=== PATIENT | female | born 1975 | race Caucasian/White ===

== ENCOUNTER 2019-05-01 17:00 | Outpatient (REF) | payer BC, MEDICAID, SELFPAY ==
[2019-05-01 20:40] LABS: Anion Gap 7.6 mmol/L (3-11); BUN 9 mg/dL (7-18); CO2 29.4 mmol/L (21.0-32.0); CREATININE 0.86 mg/dL (0.55-1.02); Calcium 8.9 mg/dL (8.5-10.1); Chloride 104 mmol/L (98-107); Glucose 80 mg/dL (74-106); Potassium 4.1 mmol/L (3.5-5.1); Sodium 141 mmol/L (136-145)
== END 2019-05-01 17:20 ==
LOC: NCHCN 17:00
PROVIDERS: PCP Nurse Practitioner Family; Visit Provider Nurse Practitioner Family
DX: I10 Essential (primary) hypertension (principal)
CPT/HCPCS: 80048

== ENCOUNTER 2019-11-28 18:07 | Outpatient (REF) | payer BC, MEDICAID, SELFPAY ==
[2019-11-28 21:26] LABS: Anion Gap 5.6 mmol/L (3-11); BUN 16 mg/dL (7-18); CO2 29.4 mmol/L (21.0-32.0); CREATININE 0.88 mg/dL (0.55-1.02); Calcium 9.3 mg/dL (8.5-10.1); Calculated LDL 94 mg/dL (<100); Chloride 102 mmol/L (98-107); Cholesterol 174 mg/dL (<200); Glucose 89 mg/dL (74-106); HDL Cholesterol 63 mg/dL (40-60); Potassium 3.9 mmol/L (3.5-5.1); Sodium 137 mmol/L (136-145); Triglyceride 87 mg/dL (<150)
== END 2019-11-28 18:27 ==
LOC: NCHCN 18:07
PROVIDERS: PCP Nurse Practitioner Family; Visit Provider Nurse Practitioner Family
DX: Z00.00 Encounter for general adult medical examination without abnormal findings (principal); Z13.220 Encounter for screening for lipoid disorders; Z13.228 Encounter for screening for other metabolic disorders; Z13.1 Encounter for screening for diabetes mellitus
CPT/HCPCS: 80048; 80061; 83036

== ENCOUNTER 2021-03-27 16:43 | Outpatient (REF) | payer MEDICAID, SELFPAY ==
[2021-03-27 21:55] LABS: Anion Gap 6.6 mmol/L (3-11); BUN 4 mg/dL (7-18); CO2 30.4 mmol/L (21.0-32.0); CREATININE 0.7 mg/dL (0.55-1.02); Calcium 8.8 mg/dL (8.5-10.1); Chloride 103 mmol/L (98-107); Glucose 96 mg/dL (74-106); Potassium 4.2 mmol/L (3.5-5.1); Sodium 140 mmol/L (136-145)
== END 2021-03-27 16:44 | disposition home or self-care (01) ==
LOC: NCHCN 16:43
PROVIDERS: PCP Nurse Practitioner Family; Visit Provider Nurse Practitioner Family
DX: I10 Essential (primary) hypertension (principal)
CPT/HCPCS: 80048

== ENCOUNTER 2022-07-23 17:21 | Outpatient (REF) | payer MEDICAID, SELFPAY ==
[2022-07-23 20:44] LABS: Anion Gap 6.3 mmol/L (3-11); BUN 11 mg/dL (7-18); CO2 30.7 mmol/L (21.0-32.0); CREATININE 0.8 mg/dL (0.55-1.02); Calcium 9.4 mg/dL (8.5-10.1); Chloride 105 mmol/L (98-107); Estimated GFR 91.97 (mL/min/1.73m2); Glucose 107 mg/dL (74-106); Potassium 3.3 mmol/L (3.5-5.1); Sodium 142 mmol/L (136-145)
== END 2022-07-23 17:22 | disposition home or self-care (01) ==
LOC: NCHCN 17:21
PROVIDERS: PCP Nurse Practitioner Family; Visit Provider Nurse Practitioner Family
DX: I10 Essential (primary) hypertension (principal)
CPT/HCPCS: 80048

== ENCOUNTER 2022-07-27 21:40 | Outpatient (REF) | payer MEDICAID, SELFPAY ==
[2022-07-27 22:07] LABS: Anion Gap 8.3 mmol/L (3-11); BUN 9 mg/dL (7-18); CO2 29.7 mmol/L (21.0-32.0); CREATININE 0.8 mg/dL (0.55-1.02); Calcium 9.5 mg/dL (8.5-10.1); Chloride 104 mmol/L (98-107); Estimated GFR 91.97 (mL/min/1.73m2); Glucose 133 mg/dL (74-106); Potassium 3.2 mmol/L (3.5-5.1); Sodium 142 mmol/L (136-145)
== END 2022-07-27 21:41 | disposition home or self-care (01) ==
LOC: NCHCN 21:40
PROVIDERS: PCP Nurse Practitioner Family; Visit Provider Nurse Practitioner Family
DX: I10 Essential (primary) hypertension (principal)
CPT/HCPCS: 80048

== ENCOUNTER 2023-04-05 16:12 | Outpatient (REF) | payer MEDICAID, SELFPAY ==
--- OUTSIDE RECORDS SUMMARY | 2023-04-05 16:14 | XMS_ITS | CCD ---
Author Name Unknown Address [address] [place] [address] [phone] Organization Unknown Address [address] [place] [address] [phone] Care Team Providers Care Senior Analyst Developer Name Role Phone THEODORA ARRIAGA Attending Physician [phone] Vital Signs Unknown or Not Available. Allergies Allergy Code Allergy Type Reaction Status No Known Drug Allergies 0 No known drug allergies Active Procedures Unknown or Not Available. History of Immunizations Unknown or Not Available. Problems Unknown or Not Available. Results Unknown or Not Available. Active Medications Medication Code Dose Units Frequency Route Modificatio n Start Date/Time Ibuprofen 600MG Oral Tablet 173161 600 MG PRN Q6H PO 01/22/20 12 14:24 Prescription Detail 600 MG PO PRN Q6H Methylergonovine Maleate 0.2MG Oral Tablet 123440 .2 MILLIGRAMS FOUR TIMES A DAY ORAL 01/22/2012 14:24 Prescription Detail TAKE .2 MILLIGRAMS ORAL FOUR TIMES A DAY Medications Administered During Visit Unknown or Not Available. Encounters Encounter Diagnosis Diagnosis Code Start Date Follow-up visit [id number] 11/25/2022 Social History Smoking Status Code Start Date End Date Never smoker [id number] Patient Decision Aids Unknown or Not Available. Discharge Instructions You were admitted to [facility] on 11/25/2022 15:15 with a principal diagnosis of Encounter for follow-up examination after completed treatment for malignant neoplasm You were discharged from [facility] on 11/25/2022 15:15 Should you have any questions prior to discharge, please contact a member of your healthcare team. If you have left the hospital and have any questions, please contact your primary care physician. Chief Complaint and Reason For Visit Unknown or Not Available. Function Status Unknown or Not Available. Plan of Care Unknown or Not Available. Referral/Transition of Care Unknown or Not Available.
--- OUTSIDE RECORDS SUMMARY | 2023-04-05 16:14 | XMS_ITS | CCD ---
Author Name Unknown Address [address] [place] [address] [phone] Organization Unknown Address [address] [place] [address] [phone] Care Team Providers Care Ep Technologist Name Role Phone VIKKI DEGROOT Attending Physician [phone] Vital Signs Unknown or Not Available. Allergies Allergy Code Allergy Type Reaction Status No Known Drug Allergies 0 No known drug allergies Active Procedures Unknown or Not Available. History of Immunizations Unknown or Not Available. Problems Unknown or Not Available. Results Unknown or Not Available. Active Medications Medication Code Dose Units Frequency Route Modificatio n Start Date/Time Ibuprofen 600MG Oral Tablet 360740 600 MG PRN Q6H PO 01/22/20 12 14:24 Prescription Detail 600 MG PO PRN Q6H Methylergonovine Maleate 0.2MG Oral Tablet 253964 .2 MILLIGRAMS FOUR TIMES A DAY ORAL 01/22/2012 14:24 Prescription Detail TAKE .2 MILLIGRAMS ORAL FOUR TIMES A DAY Medications Administered During Visit Unknown or Not Available. Encounters Encounter Diagnosis Diagnosis Code Start Date Encounter for screening mamm ogram for malignant neoplasm of breast [id number] 08/20/2022 Social History Smoking Status Code Start Date End Date Never smoker [id number] Patient Decision Aids Unknown or Not Available. Discharge Instructions You were admitted to [facility] on 08/20/2022 15:10 with a principal diagnosis of Encounter for screening mammogram for malignant neoplasm of breast You were discharged from [facility] on 08/20/2022 15:10 Should you have any questions prior to discharge, please contact a member of your healthcare team. If you have left the hospital and have any questions, please contact your primary care physician. Chief Complaint and Reason For Visit Chief Complaint Date of Onset SCR Function Status Unknown or Not Available. Plan of Care Unknown or Not Available. Referral/Transition of Care Unknown or Not Available.
--- OUTSIDE RECORDS SUMMARY | 2023-04-05 16:15 | XMS_ITS | CCD ---
Author Name Unknown Address [address] [place] [address] [phone] Organization Unknown Address [address] [place] [address] [id number] Care Team Providers Care Airfield Engineer Officer Name Role Phone CHANTE LAMBERT Sabine Attending Physician [phone] Vital Signs Unknown or Not Available. Allergies Allergy Code Allergy Type Reaction Status No Known Drug Allergies 0 No known drug allergies Active Procedures Unknown or Not Available. History of Immunizations Unknown or Not Available. Problems Unknown or Not Available. Results Unknown or Not Available. Active Medications Medication Code Dose Units Frequency Route Modificatio n Start Date/Time Ibuprofen 600MG Oral Tablet 163916 600 MG PRN Q6H PO 01/22/20 12 14:24 Prescription Detail 600 MG PO PRN Q6H Methylergonovine Maleate 0.2MG Oral Tablet 126943 .2 MILLIGRAMS FOUR TIMES A DAY ORAL 01/22/2012 14:24 Prescription Detail TAKE .2 MILLIGRAMS ORAL FOUR TIMES A DAY Medications Administered During Visit Medication Dose Units Frequency Route Date/Time of Last Dose LEUPROLIDE ACETATE 1MO SDV 3.75MG 3.75 MG Q4WEEK S IM 03/09/2023 13:31 Encounters Encounter Diagnosis Diagnosis Code Start Date Encounter for antineoplastic chemotherapy [id number] 04/20/2022 Social History Smoking Status Code Start Date End Date Never smoker [id number] Patient Decision Aids Unknown or Not Available. Discharge Instructions You were admitted to [facility] on 04/20/2022 15:15 with a principal diagnosis of Encounter for antineoplastic chemotherapy You were discharged from [facility] Should you have any questions prior to [...]
--- OUTSIDE RECORDS SUMMARY | 2023-04-05 16:15 | XMS_ITS | CCD ---
Author Name Unknown Address [address] [place] [address] [phone] Organization Unknown Address [address] [place] [address] [phone] Care Team Providers Care Photo Booth Operator Name Role Phone DAMEON STEPHENS Attending Physician [phone] DAMEON STEPHENS Rounding (Secondary) Physician [phone] Vital Signs Unknown or Not Available. Allergies Allergy Code Allergy Type Reaction Status No Known Drug Allergies 0 No known drug allergies Active Procedures Unknown or Not Available. History of Immunizations Unknown or Not Available. Problems Unknown or Not Available. Results Unknown or Not Available. Active Medications Medication Code Dose Units Frequency Route Modificatio n Start Date/Time Ibuprofen 600MG Oral Tablet 522211 600 MG PRN Q6H PO 01/22/20 12 14:24 Prescription Detail 600 MG PO PRN Q6H Methylergonovine Maleate 0.2MG Oral Tablet 779785 .2 MILLIGRAMS FOUR TIMES A DAY ORAL 01/22/2012 14:24 Prescription Detail TAKE .2 MILLIGRAMS ORAL FOUR TIMES A DAY Medications Administered During Visit Unknown or Not Available. Encounters Encounter Diagnosis Diagnosis Code Start Date Follow-up visit [id number] 07/01/2022 Social History Smoking Status Code Start Date End Date Never smoker [id number] Patient Decision Aids Unknown or Not Available. Discharge Instructions You were admitted to [facility] on 07/01/2022 08:36 with a principal diagnosis of Encounter for follow-up examination after completed treatment for malignant neoplasm You were discharged from [facility] on 07/01/2022 00:00 Should you have any questions prior to [...]
--- OUTSIDE RECORDS SUMMARY | 2023-04-05 16:15 | XMS_ITS | CCD ---
Author Name Unknown Address [address] [place] [address] [phone] Organization Unknown Address [address] [place] [address] [phone] Care Team Providers Care Lasting Floorworker Name Role Phone CHELY LOPEZ Attending Physician [phone] CHELY LOPEZ Rounding (Secondary) Physic haris [phone] Vital Signs Unknown or Not Available. Allergies Allergy Code Allergy Type Reaction Status No Known Drug Allergies 0 No known drug allergies Active Procedures Unknown or Not Available. History of Immunizations Unknown or Not Available. Problems Unknown or Not Available. Results Unknown or Not Available. Active Medications Medication Code Dose Units Frequency Route Modificatio n Start Date/Time Ibuprofen 600MG Oral Tablet 968734 600 MG PRN Q6H PO 01/22/20 12 14:24 Prescription Detail 600 MG PO PRN Q6H Methylergonovine Maleate 0.2MG Oral Tablet 041560 .2 MILLIGRAMS FOUR TIMES A DAY ORAL 01/22/2012 14:24 Prescription Detail TAKE .2 MILLIGRAMS ORAL FOUR TIMES A DAY Medications Administered During Visit Unknown or Not Available. Encounters Encounter Diagnosis Diagnosis Code Start Date Encounter for gynecological examination (general) (routine) without abnormal findings [id number] 04/20/2022 Social History Smoking Status Code Start Date End Date Never smoker [id number] Patient Decision Aids Unknown or Not Available. Discharge Instructions You were admitted to [facility] on 04/20/2022 15:46 with a principal diagnosis of Encounter for gynecological examination (general) (routine) without abnormal findings You were discharged from [facility] on 04/20/2022 15:47 Should you have any questions prior to [...]
--- OUTSIDE RECORDS SUMMARY | 2023-04-05 16:15 | XMS_ITS | CCD ---
Author Name Unknown Address [address] [place] [address] [phone] Organization Unknown Address [address] [place] [address] [phone] Care Team Providers Care Desktop Specialist Name Role Phone CHANTE LAMBERT Attending Physician [phone] CHANTE LAMBERT Rounding (Secondary) Physician [phone] Vital Signs Unknown or Not Available. Allergies Allergy Code Allergy Type Reaction Status No Known Drug Allergies 0 No known drug allergies Active Procedures Unknown or Not Available. History of Immunizations Unknown or Not Available. Problems Unknown or Not Available. Results Unknown or Not Available. Active Medications Medication Code Dose Units Frequency Route Modificatio n Start Date/Time Ibuprofen 600MG Oral Tablet 898256 600 MG PRN Q6H PO 01/22/20 12 14:24 Prescription Detail 600 MG PO PRN Q6H Methylergonovine Maleate 0.2MG Oral Tablet 925800 .2 MILLIGRAMS FOUR TIMES A DAY ORAL 01/22/2012 14:24 Prescription Detail TAKE .2 MILLIGRAMS ORAL FOUR TIMES A DAY Medications Administered During Visit Unknown or Not Available. Encounters Encounter Diagnosis Diagnosis Code Start Date Encounter for follow-up exam ination after completed treatment for malignant neoplasm Z08 05/19/2022 Social History Smoking Status Code Start Date End Date Never smoker [id number] Patient Decision Aids Unknown or Not Available. Discharge Instructions You were admitted to [facility] on 05/19/2022 09:22 with a principal diagnosis of Encounter for follow-up examination after completed treatment for malignant neoplasm You were discharged from [facility] on 05/19/2022 00:00 Should you have any questions prior [...]
--- OUTSIDE RECORDS SUMMARY | 2023-04-05 16:15 | XMS_ITS | CCD ---
Author Name Unknown Address [address] [place] [address] [phone] Organization Unknown Address [address] [place] [address] [phone] Care Team Providers Care Certified Driver Examiner Name Role Phone THEODORA ARRIAGA Attending Physician [phone] THEODORA ARRIAGA Rounding (Secondary) Physici an [phone] Vital Signs Unknown or Not Available. Allergies Allergy Code Allergy Type Reaction Status No Known Drug Allergies 0 No known drug allergies Active Procedures Unknown or Not Available. History of Immunizations Unknown or Not Available. Problems Unknown or Not Available. Results Unknown or Not Available. Active Medications Medication Code Dose Units Frequency Route Modificatio n Start Date/Time Ibuprofen 600MG Oral Tablet 601133 600 MG PRN Q6H PO 01/22/20 12 14:24 Prescription Detail 600 MG PO PRN Q6H Methylergonovine Maleate 0.2MG Oral Tablet 396359 .2 MILLIGRAMS FOUR TIMES A DAY ORAL 01/22/2012 14:24 Prescription Detail TAKE .2 MILLIGRAMS ORAL FOUR TIMES A DAY Medications Administered During Visit Unknown or Not Available. Encounters Encounter Diagnosis Diagnosis Code Start Date Encounter for follow-up exam ination after completed treatment for malignant neoplasm Z08 05/18/2022 Social History Smoking Status Code Start Date End Date Never smoker [id number] Patient Decision Aids Unknown or Not Available. Discharge Instructions You were admitted to [facility] on 05/18/2022 07:56 with a principal diagnosis of Encounter for follow-up examination after completed treatment for malignant neoplasm You were discharged from [facility] on 05/18/2022 07:56 Should you have any questions prior to [...]
--- OUTSIDE RECORDS SUMMARY | 2023-04-05 16:15 | XMS_ITS | CCD ---
Author Name Unknown Address [address] [place] [address] [phone] Organization Unknown Address [address] [place] [address] [phone] Care Team Providers Care Grade School Teacher Name Role Phone THEODORA ARRIAGA Attending Physician [phone] Vital Signs Unknown or Not Available. Allergies Allergy Code Allergy Type Reaction Status No Known Drug Allergies 0 No known drug allergies Active Procedures Unknown or Not Available. History of Immunizations Unknown or Not Available. Problems Unknown or Not Available. Results Unknown or Not Available. Active Medications Medication Code Dose Units Frequency Route Modificatio n Start Date/Time Ibuprofen 600MG Oral Tablet 370278 600 MG PRN Q6H PO 01/22/20 12 14:24 Prescription Detail 600 MG PO PRN Q6H Methylergonovine Maleate 0.2MG Oral Tablet 612641 .2 MILLIGRAMS FOUR TIMES A DAY ORAL 01/22/2012 14:24 Prescription Detail TAKE .2 MILLIGRAMS ORAL FOUR TIMES A DAY Medications Administered During Visit Unknown or Not Available. Encounters Encounter Diagnosis Diagnosis Code Start Date Screening for malignant neoplasm of colon [id number] 06/04/2022 Social History Smoking Status Code Start Date End Date Never smoker [id number] Patient Decision Aids Unknown or Not Available. Discharge Instructions You were admitted to [facility] on 06/04/2022 00:18 with a principal diagnosis of Encounter for screening for malignant neoplasm of colon You were discharged from [facility] on 06/04/2022 00:19 Should you have any questions prior to [...]
--- OUTSIDE RECORDS SUMMARY | 2023-04-05 16:15 | XMS_ITS | CCD ---
Author Name Unknown Address [address] [place] [address] [phone] Organization Unknown Address [address] [place] [address] [phone] Care Team Providers Care Residential Real Estate Assistant Name Role Phone DAMEON STEPHENS Attending Physician [phone] Vital Signs Unknown or Not Available. Allergies Allergy Code Allergy Type Reaction Status No Known Drug Allergies 0 No known drug allergies Active Procedures Unknown or Not Available. History of Immunizations Unknown or Not Available. Problems Unknown or Not Available. Results Unknown or Not Available. Active Medications Medication Code Dose Units Frequency Route Modificatio n Start Date/Time Ibuprofen 600MG Oral Tablet 744137 600 MG PRN Q6H PO 01/22/20 12 14:24 Prescription Detail 600 MG PO PRN Q6H Methylergonovine Maleate 0.2MG Oral Tablet 276557 .2 MILLIGRAMS FOUR TIMES A DAY ORAL 01/22/2012 14:24 Prescription Detail TAKE .2 MILLIGRAMS ORAL FOUR TIMES A DAY Medications Administered During Visit Unknown or Not Available. Encounters Encounter Diagnosis Diagnosis Code Start Date Encounter for follow-up exam ination after completed treatment for malignant neoplasm Z08 04/15/2022 Social History Smoking Status Code Start Date End Date Never smoker [id number] Patient Decision Aids Unknown or Not Available. Discharge Instructions You were admitted to [facility] on 04/15/2022 08:12 with a principal diagnosis of Encounter for follow-up examination after completed treatment for malignant neoplasm You were discharged from [facility] on 04/15/2022 08:13 Should you have any questions prior to [...]
--- OUTSIDE RECORDS SUMMARY | 2023-04-05 16:16 | XMS_ITS | CCD ---
Author Name Unknown Address [address] [place] [address] [phone] Organization Unknown Address [address] [place] [address] [phone] Care Team Providers Care Principal Quality Engineer Name Role Phone RODOLFO RIVAS CNM Attending Physician [phone] Vital Signs Unknown or Not Available. Allergies Allergy Code Allergy Type Reaction Status No Known Drug Allergies 0 No known drug allergies Active Procedures Unknown or Not Available. History of Immunizations Unknown or Not Available. Problems Unknown or Not Available. Results Unknown or Not Available. Active Medications Medication Code Dose Units Frequency Route Modificatio n Start Date/Time Ibuprofen 600MG Oral Tablet 158119 600 MG PRN Q6H PO 01/22/20 12 14:24 Prescription Detail 600 MG PO PRN Q6H Methylergonovine Maleate 0.2MG Oral Tablet 904915 .2 MILLIGRAMS FOUR TIMES A DAY ORAL 01/22/2012 14:24 Prescription Detail TAKE .2 MILLIGRAMS ORAL FOUR TIMES A DAY Medications Administered During Visit Unknown or Not Available. Encounters Encounter Diagnosis Diagnosis Code Start Date Encounter for surveillance o f implantable subdermal contraceptive Z3046 11/05/2020 Social History Smoking Status Code Start Date End Date Never smoker [id number] Patient Decision Aids Unknown or Not Available. Discharge Instructions You were admitted to [facility] on 11/05/2020 10:18 with a principal diagnosis of Encounter for surveillance of implantable subdermal contraceptive You were discharged from [facility] on 11/05/2020 10:18 Should you have any questions prior to [...]
--- OUTSIDE RECORDS SUMMARY | 2023-04-05 16:16 | XMS_ITS | CCD ---
Author Name Unknown Address [address] [place] [address] [phone] Organization Unknown Address [address] [place] [address] [phone] Care Team Providers Care Drafter Engineering Name Role Phone THEODORA ARRIAGA Sabine Attending Physician [phone] Vital Signs Unknown or Not Available. Allergies Allergy Code Allergy Type Reaction Status No Known Drug Allergies 0 No known drug allergies Active Procedures Unknown or Not Available. History of Immunizations Unknown or Not Available. Problems Unknown or Not Available. Results [facility] DORCAS CORRALX* - Calli ect Date/Time: 12/30/2021 09:39 Test Name Code Test Result Test Units Test Ref Rang e Tier- 18985-9 PRE-OP N/A SARS COV2 RNA: 94498-9 POSITIVE N/A REFERENCE RANGE: NEGAT Active Medications Medication Code Dose Units Frequency Route Modificatio n Start Date/Time Ibuprofen 600MG Oral Tablet 597667 600 MG PRN Q6H PO 01/22/20 12 14:24 Prescription Detail 600 MG PO PRN Q6H Methylergonovine Maleate 0.2MG Oral Tablet 422982 .2 MILLIGRAMS FOUR TIMES A DAY ORAL 01/22/2012 14:24 Prescription Detail TAKE .2 MILLIGRAMS ORAL FOUR TIMES A DAY Medications Administered During Visit Unknown or Not Available. Encounters Encounter Diagnosis Diagnosis Code Start Date COVID-19 [id number] 12/30/2021 Social History Smoking Status Code Start Date End Date Never smoker [id number] Patient Decision Aids Unknown or Not Available. Discharge Instructions You were admitted to [facility] on 12/30/2021 22:16 with a principal diagnosis of COVID-19 You had the following tests done:HU DORCAS BECKERONIX* You were discharged from [facility] on 12/30/2021 22:16 Should you have any questions prior to [...]
--- OUTSIDE RECORDS SUMMARY | 2023-04-05 16:16 | XMS_ITS | CCD ---
Author Name Unknown Address [address] [place] [address] [phone] Organization Unknown Address [address] [place] [address] [phone] Care Team Providers Care Legal Financial Specialist Name Role Phone VIKKI DEGROOT Attending Physician [phone] Vital Signs Unknown or Not Available. Allergies Allergy Code Allergy Type Reaction Status No Known Drug Allergies 0 No known drug allergies Active Procedures Unknown or Not Available. History of Immunizations Unknown or Not Available. Problems Unknown or Not Available. Results Unknown or Not Available. Active Medications Medication Code Dose Units Frequency Route Modificatio n Start Date/Time Ibuprofen 600MG Oral Tablet 840233 600 MG PRN Q6H PO 01/22/20 12 14:24 Prescription Detail 600 MG PO PRN Q6H Methylergonovine Maleate 0.2MG Oral Tablet 907659 .2 MILLIGRAMS FOUR TIMES A DAY ORAL 01/22/2012 14:24 Prescription Detail TAKE .2 MILLIGRAMS ORAL FOUR TIMES A DAY Medications Administered During Visit Unknown or Not Available. Encounters Encounter Diagnosis Diagnosis Code Start Date Cough [id number] 06/05/2021 Social History Smoking Status Code Start Date End Date Never smoker [id number] Patient Decision Aids Unknown or Not Available. Discharge Instructions You were admitted to [facility] on 06/05/2021 15:04 with a principal diagnosis of Other specified cough You were discharged from [facility] on 06/05/2021 15:04 Should you have any questions prior to discharge, please contact a member of your healthcare team. If you have left the hospital and have any questions, please contact your primary care physician. Chief Complaint and Reason For Visit Chief Complaint Date of Onset COUGH Function Status Unknown or Not Available. Plan of Care Unknown or Not Available. Referral/Transition of Care Unknown or Not Available.
--- OUTSIDE RECORDS SUMMARY | 2023-04-05 16:16 | XMS_ITS | CCD ---
Author Name Unknown Address [address] [place] [address] [phone] Organization Unknown Address [address] [place] [address] [phone] Care Team Providers Care Rn Patient Services Name Role Phone DAMEON STEPHENS Attending Physician [phone] Vital Signs Unknown or Not Available. Allergies Allergy Code Allergy Type Reaction Status No Known Drug Allergies 0 No known drug allergies Active Procedures Unknown or Not Available. History of Immunizations Unknown or Not Available. Problems Unknown or Not Available. Results Unknown or Not Available. Active Medications Medication Code Dose Units Frequency Route Modificatio n Start Date/Time Ibuprofen 600MG Oral Tablet 434619 600 MG PRN Q6H PO 01/22/20 12 14:24 Prescription Detail 600 MG PO PRN Q6H Methylergonovine Maleate 0.2MG Oral Tablet 237745 .2 MILLIGRAMS FOUR TIMES A DAY ORAL 01/22/2012 14:24 Prescription Detail TAKE .2 MILLIGRAMS ORAL FOUR TIMES A DAY Medications Administered During Visit Unknown or Not Available. Encounters Encounter Diagnosis Diagnosis Code Start Date Lymphedema, not elsewhere classified I890 09/23/2021 Social History Smoking Status Code Start Date End Date Never smoker [id number] Patient Decision Aids Unknown or Not Available. Discharge Instructions You were admitted to [facility] on 09/23/2021 08:08 with a principal diagnosis of Lymphedema, not elsewhere classified You were discharged from [facility] on 11/21/2021 13:57 Should you have any questions prior to [...]
--- OUTSIDE RECORDS SUMMARY | 2023-04-05 16:16 | XMS_ITS | CCD ---
Author Name Unknown Address [address] [place] [address] [phone] Organization Unknown Address [address] [place] [address] [phone] Care Team Providers Care Ward Service Supervisor Name Role Phone DAMEON STEPHENS Attending Physician [phone] Vital Signs Unknown or Not Available. Allergies Allergy Code Allergy Type Reaction Status No Known Drug Allergies 0 No known drug allergies Active Procedures Unknown or Not Available. History of Immunizations Unknown or Not Available. Problems Unknown or Not Available. Results Unknown or Not Available. Active Medications Medication Code Dose Units Frequency Route Modificatio n Start Date/Time Ibuprofen 600MG Oral Tablet 803260 600 MG PRN Q6H PO 01/22/20 12 14:24 Prescription Detail 600 MG PO PRN Q6H Methylergonovine Maleate 0.2MG Oral Tablet 583618 .2 MILLIGRAMS FOUR TIMES A DAY ORAL 01/22/2012 14:24 Prescription Detail TAKE .2 MILLIGRAMS ORAL FOUR TIMES A DAY Medications Administered During Visit Unknown or Not Available. Encounters Encounter Diagnosis Diagnosis Code Start Date Encounter for screening mamm ogram for malignant neoplasm of breast [id number] 08/13/2021 Social History Smoking Status Code Start Date End Date Never smoker [id number] Patient Decision Aids Unknown or Not Available. Discharge Instructions You were admitted to on 08/13/2021 07:57 with a principal diagnosis of Encounter for screening mammogram for malignant neoplasm of breast You were discharged from on 08/13/2021 07:58 Should you have any questions prior to [...]
--- OUTSIDE RECORDS SUMMARY | 2023-04-05 16:16 | XMS_ITS | CCD ---
Author Name Unknown Address [address] [place] [address] [phone] Organization Unknown Address [address] [place] [address] [phone] Care Team Providers Care Healthcare Consulting Manager Name Role Phone DAMEON STEPHENS Attending Physician [phone] Vital Signs Unknown or Not Available. Allergies Allergy Code Allergy Type Reaction Status No Known Drug Allergies 0 No known drug allergies Active Procedures Unknown or Not Available. History of Immunizations Unknown or Not Available. Problems Unknown or Not Available. Results Unknown or Not Available. Active Medications Medication Code Dose Units Frequency Route Modificatio n Start Date/Time Ibuprofen 600MG Oral Tablet 684237 600 MG PRN Q6H PO 01/22/20 12 14:24 Prescription Detail 600 MG PO PRN Q6H Methylergonovine Maleate 0.2MG Oral Tablet 000845 .2 MILLIGRAMS FOUR TIMES A DAY ORAL 01/22/2012 14:24 Prescription Detail TAKE .2 MILLIGRAMS ORAL FOUR TIMES A DAY Medications Administered During Visit Unknown or Not Available. Encounters Encounter Diagnosis Diagnosis Code Start Date Encounter for follow-up exam ination after completed treatment for malignant neoplasm Z08 02/26/2021 Social History Smoking Status Code Start Date End Date Never smoker [id number] Patient Decision Aids Unknown or Not Available. Discharge Instructions You were admitted to [facility] on 02/26/2021 08:03 with a principal diagnosis of Encounter for follow-up examination after completed treatment for malignant neoplasm You were discharged from [facility] on 02/26/2021 08:03 Should you have any questions prior to [...]
--- OUTSIDE RECORDS SUMMARY | 2023-04-05 16:16 | XMS_ITS | CCD ---
Author Name Unknown Address [address] [place] [address] [phone] Organization Unknown Address [address] [place] [address] [phone] Care Team Providers Care Ux Manager Name Role Phone DAMEON STEPHENS Attending Physician [phone] DAMEON STEPHENS Rounding (Secondary) Physician [phone] Vital Signs Unknown or Not Available. Allergies Allergy Code Allergy Type Reaction Status No Known Drug Allergies 0 No known drug allergies Active Procedures Unknown or Not Available. History of Immunizations Unknown or Not Available. Problems Unknown or Not Available. Results Unknown or Not Available. Active Medications Medication Code Dose Units Frequency Route Modificatio n Start Date/Time Ibuprofen 600MG Oral Tablet 442239 600 MG PRN Q6H PO 01/22/20 12 14:24 Prescription Detail 600 MG PO PRN Q6H Methylergonovine Maleate 0.2MG Oral Tablet 550129 .2 MILLIGRAMS FOUR TIMES A DAY ORAL 01/22/2012 14:24 Prescription Detail TAKE .2 MILLIGRAMS ORAL FOUR TIMES A DAY Medications Administered During Visit Unknown or Not Available. Encounters Unknown or Not Available. Social History Smoking Status Code Start Date End Date Never smoker [id number] Patient Decision Aids Unknown or Not Available. Discharge Instructions You were admitted to [facility] on 03/31/2023 12:13 You were discharged from [facility] Should you have any questions prior to [...]
--- OUTSIDE RECORDS SUMMARY | 2023-04-05 16:16 | XMS_ITS | CCD ---
Author Name Unknown Address [address] [place] [address] [phone] Organization Unknown Address [address] [place] [address] [phone] Care Team Providers Care Documentation Liaison Name Role Phone DAMEON STEPHENS Attending Physician [phone] DAMEON STEPHENS Rounding (Secondary) Physician [phone] Vital Signs Unknown or Not Available. Allergies Allergy Code Allergy Type Reaction Status No Known Drug Allergies 0 No known drug allergies Active Procedures Unknown or Not Available. History of Immunizations Unknown or Not Available. Problems Unknown or Not Available. Results Unknown or Not Available. Active Medications Medication Code Dose Units Frequency Route Modificatio n Start Date/Time Ibuprofen 600MG Oral Tablet 427785 600 MG PRN Q6H PO 01/22/20 12 14:24 Prescription Detail 600 MG PO PRN Q6H Methylergonovine Maleate 0.2MG Oral Tablet 317628 .2 MILLIGRAMS FOUR TIMES A DAY ORAL 01/22/2012 14:24 Prescription Detail TAKE .2 MILLIGRAMS ORAL FOUR TIMES A DAY Medications Administered During Visit Unknown or Not Available. Encounters Encounter Diagnosis Diagnosis Code Start Date Encounter for follow-up exam ination after completed treatment for malignant neoplasm Z08 08/13/2021 Social History Smoking Status Code Start Date End Date Never smoker [id number] Patient Decision Aids Unknown or Not Available. Discharge Instructions You were admitted to [facility] on 08/13/2021 09:22 with a principal diagnosis of Encounter for follow-up examination after completed treatment for malignant neoplasm You were discharged from [facility] on 08/13/2021 00:00 Should you have any questions prior [...]
--- OUTSIDE RECORDS SUMMARY | 2023-04-05 16:17 | XMS_ITS | CCD ---
Author Name Unknown Address [address] [place] [address] [phone] Organization Unknown Address [address] [place] [address] [phone] Care Team Providers Care Courtroom Reporter Name Role Phone THEODORA ARRIAGA MD Attending Physician [phone] Vital Signs Unknown or Not Available. Allergies Allergy Code Allergy Type Reaction Status No Known Drug Allergies 0 No known drug allergies Active Procedures Unknown or Not Available. History of Immunizations Unknown or Not Available. Problems Unknown or Not Available. Results Unknown or Not Available. Active Medications Medication Code Dose Units Frequency Route Modificatio n Start Date/Time Ibuprofen 600MG Oral Tablet 429434 600 MG PRN Q6H PO 01/22/20 12 14:24 Prescription Detail 600 MG PO PRN Q6H Methylergonovine Maleate 0.2MG Oral Tablet 539202 .2 MILLIGRAMS FOUR TIMES A DAY ORAL 01/22/2012 14:24 Prescription Detail TAKE .2 MILLIGRAMS ORAL FOUR TIMES A DAY Medications Administered During Visit Unknown or Not Available. Encounters Encounter Diagnosis Diagnosis Code Start Date Malignant neoplasm of overla pping sites of right female breast [id number] 10/04/2020 Social History Smoking Status Code Start Date End Date Never smoker [id number] Patient Decision Aids Unknown or Not Available. Discharge Instructions You were admitted to [facility] on 10/04/2020 08:50 with a principal diagnosis of Malignant neoplasm of overlapping sites of right female breast You were discharged from [facility] on 10/04/2020 08:50 Should you have any questions prior to [...]
--- OUTSIDE RECORDS SUMMARY | 2023-04-05 16:17 | XMS_ITS | CCD ---
Author Name Unknown Address [address] [place] [address] [phone] Organization Unknown Address [address] [place] [address] [phone] Care Team Providers Care Sap Bi Developer Name Role Phone THEODORA ARRIAGA MD Attending Physician [phone] Vital Signs Unknown or Not Available. Allergies Allergy Code Allergy Type Reaction Status No Known Drug Allergies 0 No known drug allergies Active Procedures Unknown or Not Available. History of Immunizations Unknown or Not Available. Problems Unknown or Not Available. Results Unknown or Not Available. Active Medications Medication Code Dose Units Frequency Route Modificatio n Start Date/Time Ibuprofen 600MG Oral Tablet 040387 600 MG PRN Q6H PO 01/22/20 12 14:24 Prescription Detail 600 MG PO PRN Q6H Methylergonovine Maleate 0.2MG Oral Tablet 549260 .2 MILLIGRAMS FOUR TIMES A DAY ORAL 01/22/2012 14:24 Prescription Detail TAKE .2 MILLIGRAMS ORAL FOUR TIMES A DAY Medications Administered During Visit Unknown or Not Available. Encounters Unknown or Not Available. Social History Smoking Status Code Start Date End Date Never smoker [id number] Patient Decision Aids Unknown or Not Available. Discharge Instructions You were admitted to [facility] on 10/04/2020 19:53 You were discharged from [facility] on 10/04/2020 19:53 Should you have any questions prior to [...]
--- OUTSIDE RECORDS SUMMARY | 2023-04-05 16:17 | XMS_ITS | CCD ---
Author Name Unknown Address [address] [place] [address] [phone] Organization Unknown Address [address] [place] [address] [phone] Care Team Providers Care Field Care Coordinator Name Role Phone THEODORA ARRIAGA MD Attending Physician [phone] Vital Signs Vital Sign Value Unit Date/Time Recent/Initial ? BP Systolic 90 mmHg 10/04/2020 17:42 Initial VS BP Diastolic 55 mmHg 10/04/2020 17:42 Initia l VS Respiratory Rate 19 bpm 10/04/2020 17:42 In itial VS Heart Rate 81 bpm 10/04/2020 17:42 Initial VS O2 % BldC Oximetry 96 % 10/04/2020 17:42 Initial VS Body Temperature 36.4 degrees 10/04/2020 17:42 In itial VS Allergies Allergy Code Allergy Type Reaction Status No Known Drug Allergies 0 No known drug allergies Active Procedures Procedure Code Procedure Type Date Mastectomy, Partial (eg, Lum pectomy, Tylectomy, Quadrantectomy, Segmentectomy) 05538 CPT Bx/Excision, Lymph Node(s); Open, Deep Axillary Node(s) 03575 CPT 10/04/2020 Inj Radioactive Tracer For ID Of [place] Node 20559 CPT 10/04/2020 Lymphatics & Lymph Glands Imaging 38464 CPT 10/04/2020 Injection Anesthetic Agent a nd/or Steroid; Other Peripheral Nerve or Branch 41678 CPT 10/04/2020 Anesthesia, Nerves/Muscles/T endons/Fascia & Bursae, Shoulder/Axilla 64282 CPT 10/04/2020 History of Immunizations Unknown or Not Available. Problems Unknown or Not Available. Results TEST (URINE) QUALI TATIVE - Collect Date/Time: 10/04/2020 10:22 Test Name Code Test Result Test Units Test Ref Rang e TEST 2105-05 NEGATIVE N/A TISSUE SURGICAL PATHOLOGY (C ONSULT) - Collect Date/Time: 10/04/2020 17:04 Test Name Code Test Result Test Units Test Ref Rang e Report (See below) N/A Active Medications Medications Administered During Visit Medication Dose Units Frequency Route Date/Time of Last Dose LACTATED RINGERS 1000ML IV X1 10/04/2020 11:38 MIDAZOLAM INJ SDV: 2MG/2ML 2 MG X1 IVP 10/04/2020 13:18 HEPARIN INJ SDV: 5,000 UNITS/ML 5000 UNITS X1 SUBQ 10/04/2020 13:19 LACTATED RINGERS 1000ML IV CONT IN PACU 10/04/2020 16:39 Encounters Encounter Diagnosis Diagnosis Code Start Date Malignant neoplasm of overla pping sites of right female breast [id number] 10/04/2020 Social History Smoking Status Code Start Date End Date Never smoker [id number] Patient Decision Aids Unknown or Not Available. Discharge Instructions You were admitted to [facility] on 10/04/2020 09:56 with a principal diagnosis of Malignant neoplasm of overlapping sites of right female breast You had the following procedures done:Mastectomy, Partial (eg, Lumpectomy, Tylectomy, Quadrantectomy, Segmentectomy)Bx/Excision, Lymph Node(s); Open, Deep Axillary Node(s)Inj Radioactive Tracer For ID Of Salmon NodeLymphatics & Lymph Glands ImagingInjection Anesthetic Agent and/or Steroid; Other Peripheral Nerve or BranchAnesthesia, Nerves/Muscles/Tendons/Fascia & Bursae, Shoulder/Axilla You had the following tests done:TISSUE SURGICAL PATHOLOGY (CONSULT) TEST (URINE) QUALITATIVE You were discharged from [facility] on 10/04/2020 18:30 Should you have any questions prior to discharge, please contact a member of your healthcare team. If you have left the hospital and have any questions, please contact your primary care physician. Chief Complaint and Reason For Visit Chief Complaint Date of Onset RIGHT BREAST ULTRASOUND GUID ED AND MAGSEED GUIDED PARTIAL MASTECTOMY AND SENTINAL NODE BIOPSY Function Status Unknown or Not Available. Plan of Care Unknown or Not Available. Referral/Transition of Care Unknown or Not Available.
--- OUTSIDE RECORDS SUMMARY | 2023-04-05 16:17 | XMS_ITS | CCD ---
Author Name Unknown Address [address] [place] [address] [phone] Organization Unknown Address [address] [place] [address] [phone] Care Team Providers Care Electrical Troubleshooter Name Role Phone THEODORA ARRIAGA MD Attending Physician [phone] Vital Signs Unknown or Not Available. Allergies Allergy Code Allergy Type Reaction Status No Known Drug Allergies 0 No known drug allergies Active Procedures Procedure Code Procedure Type Date Perq Breast Loc Device Placemt 1st Lesio US Imag 08533 CPT 10/02/2020 Perq Breast Loc Device Placemt Each Les US Image 56858 CPT 10/02/2020 History of Immunizations Unknown or Not Available. Problems Unknown or Not Available. Results Unknown or Not Available. Active Medications Medication Code Dose Units Frequency Route Modificatio n Start Date/Time Ibuprofen 600MG Oral Tablet 701480 600 MG PRN Q6H PO 01/22/20 12 14:24 Prescription Detail 600 MG PO PRN Q6H Methylergonovine Maleate 0.2MG Oral Tablet 732574 .2 MILLIGRAMS FOUR TIMES A DAY ORAL 01/22/2012 14:24 Prescription Detail TAKE .2 MILLIGRAMS ORAL FOUR TIMES A DAY Medications Administered During Visit Unknown or Not Available. Encounters Encounter Diagnosis Diagnosis Code Start Date Malignant neoplasm of overla pping sites of right female breast Q68255 10/02/2020 Social History Smoking Status Code Start Date End Date Never smoker [id number] Patient Decision Aids Unknown or Not Available. Discharge Instructions You were admitted to [facility] on 10/02/2020 08:42 with a principal diagnosis of Malignant neoplasm of overlapping sites of right female breast You had the following procedures done:Perq Breast Loc Device Placemt 1st Lesio US ImagPerq Breast Loc Device Placemt Each Les US Image You were discharged from [facility] on 10/02/2020 08:42 Should you have any questions prior to [...]
--- OUTSIDE RECORDS SUMMARY | 2023-04-05 16:17 | XMS_ITS | CCD ---
Author Name Unknown Address [address] [place] [address] [phone] Organization Unknown Address [address] [place] [address] [phone] Care Team Providers Care Manager Gyn Name Role Phone THEODORA ARRIAGA MD Attending Physician [phone] Vital Signs Unknown or Not Available. Allergies Allergy Code Allergy Type Reaction Status No Known Drug Allergies 0 No known drug allergies Active Procedures Procedure Code Procedure Type Date Bx Breast w/Device 1st Lesion Ultrasound Guid 97130 CPT 09/02/2020 History of Immunizations Unknown or Not Available. Problems Unknown or Not Available. Results TISSUE SURGICAL PATHOLOGY (C ONSULT) - Collect Date/Time: 09/02/2020 13:21 Test Name Code Test Result Test Units Test Ref Rang e Report TNP N/A Active Medications Medication Code Dose Units Frequency Route Modificatio n Start Date/Time Ibuprofen 600MG Oral Tablet 374672 600 MG PRN Q6H PO 01/22/20 12 14:24 Prescription Detail 600 MG PO PRN Q6H Methylergonovine Maleate 0.2MG Oral Tablet 852000 .2 MILLIGRAMS FOUR TIMES A DAY ORAL 01/22/2012 14:24 Prescription Detail TAKE .2 MILLIGRAMS ORAL FOUR TIMES A DAY Medications Administered During Visit Unknown or Not Available. Encounters Encounter Diagnosis Diagnosis Code Start Date Malignant neoplasm of lower- outer quadrant of right female breast [id number] 09/02/2020 Social History Smoking Status Code Start Date End Date Never smoker [id number] Patient Decision Aids Unknown or Not Available. Discharge Instructions You were admitted to [facility] on 09/02/2020 08:40 with a principal diagnosis of Malignant neoplasm of lower-outer quadrant of right female breast You had the following procedures done:Bx Breast w/Device 1st Lesion Ultrasound Guid You had the following tests done:TISSUE SURGICAL PATHOLOGY (CONSULT) You were discharged from [facility] on 09/02/2020 08:40 Should you have any questions prior to [...]
--- OUTSIDE RECORDS SUMMARY | 2023-04-05 16:17 | XMS_ITS | CCD ---
Author Name Unknown Address [address] [place] [address] [phone] Organization Unknown Address [address] [place] [address] [phone] Care Team Providers Care Web Specialist Name Role Phone THEODORA ARRIAGA MD Attending Physician [phone] Vital Signs Unknown or Not Available. Allergies Allergy Code Allergy Type Reaction Status No Known Drug Allergies 0 No known drug allergies Active Procedures Unknown or Not Available. History of Immunizations Unknown or Not Available. Problems Unknown or Not Available. Results BASIC METABOLIC PANEL (BMP) - Collect Date/Time: 09/16/2020 11:23 Test Name Code Test Result Test Units Test Ref Rang e GLUCOSE 2345-7 82 mg/dL L=70 H=116 BUN 3094-0 10 mg/dL L=6 H=25 CREATININE 2160-0 0.84 mg/dL L=0.51 H=0.95 SODIUM SERUM 2951-2 139 mmol/L L=136 H=145 POTASSIUM SERUM 2823-3 4.2 mmol/L L=3.4 H=5 .2 CHLORIDE SERUM 2075-0 103 mmol/L L=96 H=110 CARBON DIOXIDE (CO2) 2028-9 30 mmol/L L=22 H=34 ANION GAP 65934-9 6.0 mmol/L CALCIUM SERUM 30452-3 9.1 mg/dL L=8.2 H=10. 2 AGE 45 years eGFR (non-Afr.Amer.) 52466-5 74 mL/min eGFR (Afr-Citizen Of [place]) 65639-9 89 mL/min COMPREHENSIVE METABOLIC PANE L (CMP) - Collect Date/Time: 09/16/2020 11:23 Test Name Code Test Result Test Units Test Ref Rang e GLUCOSE 2345-7 82 mg/dL L=70 H=116 BUN 3094-0 10 mg/dL L=6 H=25 CREATININE 2160-0 0.84 mg/dL L=0.51 H=0.95 SODIUM SERUM 2951-2 139 mmol/L L=136 H=145 POTASSIUM SERUM 2823-3 4.2 mmol/L L=3.4 H=5 .2 CHLORIDE SERUM 2075-0 103 mmol/L L=96 H=110 CARBON DIOXIDE (CO2) 2028-9 30 mmol/L L=22 H=34 ANION GAP 42053-5 6.0 mmol/L CALCIUM SERUM 89851-0 9.1 mg/dL L=8.2 H=10. 2 BILIRUBIN TOTAL 1975-2 0.4 mg/dL L=0.0 H=1 .3 ALK. PHOS. 6768-6 42 U/L L=46 H=116 SGOT (AST) 1920-8 12 U/L L=15 H=37 SGPT (ALT) 1742-6 16 U/L L=12 H=78 TOTAL PROTEIN 2885-2 7.6 gm/dL L=6.0 H=8.0 ALBUMIN 1751-7 4.1 gm/dL L=3.4 H=5.0 AGE 45 years eGFR (non-Afr.Amer.) 91630-6 74 mL/min eGFR (Afr-Citizen Of [place]) 48761-7 89 mL/min CBC W/ DIFFERENTIAL - [facility] t Date/Time: 09/16/2020 11:23 Test Name Code Test Result Test Units Test Ref Rang e WBC 6690-2 6.34 th/cmm L=5.00 H=10.00 NEUT % 53.0 % L=40.0 H=80.0 LYMPH % 37.2 % L=10.0 H=50.0 MONO % 11373-0 8.0 % L=2.0 H=12.0 EOS % 0.9 % L=0.0 H=8.0 BASO % 0.6 % L=0.0 H=3.0 IG % 2514-8 0.3 % L=0.0 H=1.1 NRBC % 15781-3 0.0 % L=0.0 H=0.0 NEUT abs count 751-8 3.4 th/cmm L=1.6 H=8. 4 LYMPH abs count 731-0 2.4 th/cmm L=1.5 H=4 .0 MONO abs count 742-7 0.5 th/cmm L=0.2 H=1. 0 EOS abs count 711-2 0.1 th/cmm L=0.0 H=0.5 BASO abs count 704-7 0.0 th/cmm L=0.0 H=0. 2 IG abs count 61223-7 0.0 th/cmm L=0.0 H=0.1 NRBC abs count 98998-0 0.0 mil/cmm L=0.0 H=0. 0 RBC 789-8 4.30 mil/cmm L=3.90 H=5.40 HEMOGLOBIN 718-7 13.7 gm/dL L=12.0 H=16.0 HEMATOCRIT 4544-3 41 % L=37 H=47 MCV 787-2 95 fL L=82 H=92 MCH 785-6 31.9 pg L=27.0 H=31.0 MCHC 786-4 33.4 % L=32.0 H=36.0 RDW-SD 788-0 42.6 fL L=39.0 H=49.0 PLATELET COUNT 777-3 267 th/cmm L=150 H=45 0 Active Medications Medication Code Dose Units Frequency Route Modificatio n Start Date/Time Ibuprofen 600MG Oral Tablet 458347 600 MG PRN Q6H PO 01/22/20 12 14:24 Prescription Detail 600 MG PO PRN Q6H Methylergonovine Maleate 0.2MG Oral Tablet 665105 .2 MILLIGRAMS FOUR TIMES A DAY ORAL 01/22/2012 14:24 Prescription Detail TAKE .2 MILLIGRAMS ORAL FOUR TIMES A DAY Medications Administered During Visit Unknown or Not Available. Encounters Encounter Diagnosis Diagnosis Code Start Date Malignant neoplasm of lower- outer quadrant of right female breast [id number] 09/16/2020 Social History Smoking Status Code Start Date End Date Never smoker [id number] Patient Decision Aids Unknown or Not Available. Discharge Instructions You were admitted to [facility] on 09/16/2020 09:28 with a principal diagnosis of Malignant neoplasm of lower-outer quadrant of right female breast You had the following tests done:BASIC METABOLIC PANEL (BMP)CBC W/ DIFFERENTIALCOMPREHENSIVE METABOLIC PANEL (CMP) You were discharged from [facility] 01 on 09/16/2020 09:28 Should you have any questions prior to [...]
--- OUTSIDE RECORDS SUMMARY | 2023-04-05 16:17 | XMS_ITS | CCD ---
Author Name Unknown Address [address] [place] [address] [id number] Organization Unknown Address [address] [place] [address] [phone] Care Team Providers Care Milieu Technician Name Role Phone THEODORA ARRIAGA MD Attending Physician [phone] Vital Signs Unknown or Not Available. Allergies Allergy Code Allergy Type Reaction Status No Known Drug Allergies 0 No known drug allergies Active Procedures Unknown or Not Available. History of Immunizations Unknown or Not Available. Problems Unknown or Not Available. Results Unknown or Not Available. Active Medications Medication Code Dose Units Frequency Route Modificatio n Start Date/Time Ibuprofen 600MG Oral Tablet 547557 600 MG PRN Q6H PO 01/22/20 12 14:24 Prescription Detail 600 MG PO PRN Q6H Methylergonovine Maleate 0.2MG Oral Tablet 756531 .2 MILLIGRAMS FOUR TIMES A DAY ORAL 01/22/2012 14:24 Prescription Detail TAKE .2 MILLIGRAMS ORAL FOUR TIMES A DAY Medications Administered During Visit Unknown or Not Available. Encounters Encounter Diagnosis Diagnosis Code Start Date Encounter for follow-up exam ination after completed treatment for malignant neoplasm Z08 10/16/2020 Social History Smoking Status Code Start Date End Date Never smoker [id number] Patient Decision Aids Unknown or Not Available. Discharge Instructions You were admitted to [facility] on 10/16/2020 13:41 with a principal diagnosis of Encounter for follow-up examination after completed treatment for malignant neoplasm You were discharged from [facility] on 10/16/2020 13:42 Should you have any questions prior to [...]
[2023-04-05 21:22] LABS: ALT 21 U/L (14-59); AST 15 U/L (15-37); Albumin 4.2 g/dL (3.4-5.0); Alkaline Phosphatase 73 U/L (46-116); Anion Gap 6.3 mmol/L (3-11); BUN 10 mg/dL (7-18); CO2 30.7 mmol/L (21.0-32.0); CREATININE 0.8 mg/dL (0.55-1.02); Calcium 9.7 mg/dL (8.5-10.1); Calculated LDL 135 mg/dL (<100); Chloride 103 mmol/L (98-107); Cholesterol 206 mg/dL (<200); Estimated GFR 91.97 (mL/min/1.73m2); Glucose 95 mg/dL (74-106); HDL Cholesterol 57 mg/dL (40-60); Potassium 3.8 mmol/L (3.5-5.1); Sodium 140 mmol/L (136-145); Total Protein 7.8 g/dL (6.4-8.2); Triglyceride 73 mg/dL (<150)
[2023-04-05 21:34] LABS: Bilirubin, Total 0.4 mg/dL (0.2-1.0)
== END 2023-04-05 16:13 | disposition home or self-care (01) ==
LOC: NCHCN 16:12
PROVIDERS: PCP Nurse Practitioner Family; Visit Provider Nurse Practitioner Family
DX: I10 Essential (primary) hypertension (principal); Z13.6 Encounter for screening for cardiovascular disorders; Z13.1 Encounter for screening for diabetes mellitus
CPT/HCPCS: 80053; 80061; 83036

== ENCOUNTER 2024-07-11 15:23 | Outpatient (REF) | payer MEDICAID, SELFPAY ==
[2024-07-11 22:06] LABS: ALT 21 U/L (14-59); AST 19 U/L (15-37); Albumin 3.9 g/dL (3.4-5.0); Alkaline Phosphatase 88 U/L (46-116); Anion Gap 3.7 mmol/L (3-11); BUN 12 mg/dL (7-18); Bilirubin, Total 0.4 mg/dL (0.2-1.0); CO2 30.3 mmol/L (21.0-32.0); Calcium 9.6 mg/dL (8.5-10.1); Calculated LDL 116 mg/dL (<100); Chloride 108 mmol/L (98-107); Cholesterol 186 mg/dL (<200); Estimated GFR 69.49 (mL/min/1.73m2); Glucose 147 mg/dL (74-106); HDL Cholesterol 51 mg/dL (>or=50); Potassium 3.3 mmol/L (3.5-5.1); Sodium 142 mmol/L (136-145); Total Protein 7.3 g/dL (6.4-8.2); Triglyceride 95 mg/dL (<150)
[2024-07-11 22:16] LABS: COMMENT (LAB VIEW ONLY) 122.87 mg/dL; Microalb ug/mg Crea 8.7 ug/mg Cr
== END 2024-07-11 15:24 | disposition home or self-care (01) ==
LOC: NCHCN 15:23
PROVIDERS: PCP Nurse Practitioner Family; Visit Provider Nurse Practitioner Family
DX: I10 Essential (primary) hypertension (principal)
CPT/HCPCS: 80053; 80061; 82043; 82570